=== PATIENT | male | born 1950 ===

== ENCOUNTER → 2018-05-07 13:42 | Outpatient (REF) | payer MEDICARE, OTHER, SELFPAY | LOC: LAB 13:42 | PROVIDERS: Visit Provider Otolaryngology Facial Plastic Surgery | DX: J34.89 Other specified disorders of nose and nasal sinuses (principal); J34.0 Abscess, furuncle and carbuncle of nose | CPT/HCPCS: 87070; 87077; 87147; 87186 ==

== ENCOUNTER → 2018-05-15 18:40 | Outpatient (REF) | payer MEDICARE, OTHER, SELFPAY | LOC: LAB 18:40 | PROVIDERS: Visit Provider Otolaryngology Facial Plastic Surgery | DX: J34.0 Abscess, furuncle and carbuncle of nose (principal) | CPT/HCPCS: 87070; 87077; 87147; 87186 ==